=== PATIENT | female | born 1945 | race Caucasian/White ===

== ENCOUNTER → 2020-02-21 09:41 | Outpatient (CLI) | payer OTHER, SELFPAY ==
--- NOTE | 2020-02-21 09:42 | DI.RAD.S_ITS ---
PROCEDURE: [place] BARIUM ENEMA W AIR CONTRAST INDICATIONS: unable to do colonoscopy. Screening for colon cancer COMPARISON: [facility], , BARIUM ENEMA W AIR CONTRAST, 01/28/2012, 10:12. FINDINGS: KUB: Pre-procedural scout sniper film demonstrates a normal bowel gas pattern. No suspicious abdominal calcifications. Visualized solid organ contours are normal in size. No suspicious bony lesions. Colon: There is adequate air-contrast opacification from the rectum to the cecum. No strictures, ulcers, polyps, or masses are seen. Haustral folds are normal in thickness throughout. Scattered diverticula. Reflux into the terminal ileum , the visualized portion of which, is unremarkable. IMPRESSION: 1. Scattered diverticulosis. 2. No evidence of obstructing or constricting lesions. Normal mucosal pattern. No polyps identified. Dictated by: Zachariah Howe M.D. on 02/21/2020 at 11:38 Approved by: Zachariah Howe M.D. on 02/21/2020 at 11:44
== END ==
PROVIDERS: Family Provider Nurse Practitioner Family; PCP Family Medicine; Referring Provider Specialist; Visit Provider Specialist
DX: Z12.11 Encounter for screening for malignant neoplasm of colon (principal); K57.30 Diverticulosis of large intestine without perforation or abscess without bleeding
CPT/HCPCS: 74280